=== PATIENT | female | born 1945 | race Caucasian/White ===

== ENCOUNTER 2017-02-27 11:00 | Inpatient (IN) | payer MEDICARE, OTHER ==
[~2017-02-27] VITALS: Ht 165.1 cm; Wt 114.0 kg
--- NOTE | ~2017-02-27 | DS ---
PATIENT'S NAME: ANTHONY FERRARI [facility] AGE: 71 Y [address] ROOM: [place] [address] LOCATION: [facility] ADMIT DATE: 03/12/2017 Discharge Summary DISCHARGE DATE: 03/15/2017 FAMILY PHYSICIAN: Chante Pompa MD ATTENDING PHYSICIAN: John Galdamez PRIMARY DIAGNOSIS: Degenerative joint disease of the right knee. SECONDARY DIAGNOSES: 1. Osteopenia. 2. Low blood pressure. 3. History of L4 compression fracture. 4. Hyperthyroidism. 5. History of depression. 6. Obesity, BMI of 37. PROCEDURE PERFORMED: Right total knee arthroplasty with computer navigation. HISTORY: The patient is a 71-year-old female, who presents with advanced right degenerative joint disease and associated severely compromised activities of daily living. The patient has decided to proceed with total knee arthroplasty after having been thoroughly counseled regarding the risks, benefits, limitations and alternatives. Please refer to the outpatient clinic notes and admission history and physical for this patient. HOSPITAL COURSE: The patient underwent a right total knee arthroplasty on 03/12/2017 without complications. General endotracheal anesthesia plus adductor canal block plus periarticular local anesthesia was utilized. The patient received 24 hours of perioperative prophylactic antibiotics and remained hemodynamically stable, neurovascularly intact throughout the entire hospital course. The postoperative prophylactic deep venous thrombosis prophylaxis consisted of Xarelto, early mobilization and pneumatic compression devices. Daily physical therapy for gait training, transfer training range of motion and quadriceps isometric exercises were received. The patient progressed well in physical therapy. On the date of discharge, 03/15/2017, the incision at the knee was healing well and showed no signs of infection. DISPOSITION: Critical access hospital. DISCHARGE ACTIVITY: The patient is to bear weight as tolerated with range of motion and quadriceps isometric exercises as instructed. The operative extremity is to be elevated at least 90% of the day. There is to be sterile 4x4 gauze dressings to the incision daily. Dr. Galdamez is to be notified immediately if there is any increased pain, fevers, chills erythema or drainage. PATIENT'S NAME: ANTHONY FERRARI [facility] AGE: 71 Y [address] ROOM: [place] [address] LOCATION: [facility] ADMIT DATE: 03/12/2017 Discharge Summary DISCHARGE DATE: 03/15/2017 FAMILY PHYSICIAN: Chante Pompa MD ATTENDING PHYSICIAN: John Galdamez DISCHARGE MEDICATIONS: 1. Xarelto 10 mg, take 1 tablet p.o. daily for DVT prevention. 2. Dilaudid 2 mg, take 1-2 tablets p.o. every 4 hours as needed for pain. 3. Valium 5 mg, take 1/2 tablet to 1 tablet every 6 hours as needed for muscle spasms. FOLLOWUP: Followup appointment is to be with Dr. Galdamez on 1 week subsequent to dismissal from the hospital for initial postoperative evaluation and x-rays at that time and for staple removal. INDU DAMON FOR JOHN GALDAMEZ MD TLB/modl /[id number] d: 03/29/17 1020 t: 04/13/17 0751, DISCHARGE SUMMARY
--- NOTE | ~2017-02-27 | OR ---
PATIENT'S NAME: ANTHONY CRUZ [facility] AGE: 71 Y [address] ROOM: [place] [address] LOCATION: [facility] ADMIT DATE: 03/12/2017 OR/Procedure Report DISCHARGE DATE: FAMILY PHYSICIAN: ROSA ELENA CANTOR MD ATTENDING PHYSICIAN: JOHN GALDAMEZ SURGEON: John Galdamez MD [place] OPERATOR: 1. Aly Bustos PA-C. 2. Kanu Michael CST/ISABEL. DATE OF PROCEDURE: 03/12/2017 PRE-OP DIAGNOSIS: Degenerative joint disease right knee. POST-OP DIAGNOSES: 1. Degenerative joint disease right knee. 2. Chronic anterior cruciate ligament insufficiency. OPERATION: Right total knee arthroplasty with computer navigation. ANESTHESIA: General endotracheal anesthesia plus adductor canal block plus periarticular local anesthesia (ropivacaine with epinephrine and Toradol). ESTIMATED BLOOD LOSS: Approximately 10 mL. DRAIN: None. SPECIMEN: None. COMPLICATIONS: None. IMPLANT SYSTEM: Curlew Triathlon: 1. Size 5 right posterior stabilized femoral component. 2. Size 4 universal modular tibial base plate. 3. 13 mm posterior stabilized size 4 x 3 tibial polyethylene insert. 4. 29 mm oval x3 patella component. INDICATIONS FOR SURGERY: Anthony Cruz is a 71-year-old female who presents with advanced right knee degenerative joint disease and associated severely compromised activities of daily living. The patient has decided to proceed with knee replacement after having been thoroughly counseled regarding the associated risks, benefits, and limitations. We have specifically reviewed the risks and implications of infection, deep venous thrombosis, pulmonary embolism, mortality, neurovascular complications, blood transfusion (and associated potential for disease transmission or transfusion reaction), stiffness, instability, mechanical deterioration of the components (due to wear and or loosening), and the potential need for revision. We have also PATIENT'S NAME: ANTHONY CRUZ [facility] AGE: 71 Y [address] ROOM: [place] [address] LOCATION: [facility] ADMIT DATE: 03/12/2017 OR/Procedure Report DISCHARGE DATE: FAMILY PHYSICIAN: ROSA ELENA CANTOR MD ATTENDING PHYSICIAN: JOHN GALDAMEZ emphasized the importance of active involvement and compliance with post- operative physical therapy as a means of optimizing range of motion and functional recovery. Informed consent has been granted. DESCRIPTION OF PROCEDURE: The patient was positioned supine after administration of anesthesia and prophylactic antibiotics. A well-padded pneumatic tourniquet was placed around the right proximal thigh, and the right lower extremity was prepped and draped with vigilant sterile technique. The patient's name as well as the intended operative side and procedure were confirmed with a verbal time-out involving myself, the circulating nurse, the scrub nurse, and the anesthesiologist. Examination under anesthesia demonstrated a large soft tissue envelope surrounding the knee, thigh, and calf. There was a large effusion. There were no active skin lesions or masses. There was no erythema. There was no abnormal warmth. Range of motion under anesthesia was from a 10 degree flexion contracture to 90 degrees of flexion. There was no clinically evident ligamentous insufficiency. The right lower extremity was elevated and exsanguinated with an Esmarch wrap, and the pneumatic tourniquet was inflated to 300mmHg. The knee was approached through a longitudinal midline incision. A medial parapatellar arthrotomy was performed and the patella was everted. Examination of the joint space demonstrated a large amount of benign-appearing translucent synovial fluid. There was extensive moderately proliferative synovitis. An extensive synovectomy was performed. A 1 cm loose body was noted at the posterior aspect of the medial compartment. Three separate 5 mm loose bodies were noted in the lateral gutter. There was a large fabella. There was full-thickness loss of articular cartilage throughout the medial femoral condyle and the medial tibial plateau. There was erosion of approximately 8 mm of subchondral bone from the medial tibial plateau. There was full-thickness loss of articular cartilage throughout 90% of the lateral femoral condyle and 90% of the lateral tibial plateau. There were large osteophytes at the medial and lateral femoral condyles as well as the medial, lateral, and superior margins of the femoral trochlea. There was a moderate-sized osteophyte at the superior aspect of the patella. There were mild grade 3 degenerative changes at the patella and femoral trochlea. There was extensive chondrocalcinosis and extensive degenerative tearing of the medial and lateral menisci. Remnants of the menisci and cruciate ligaments were excised. The [employer] navigation femoral tracker was pinned in place at the distal aspect of the femoral trochlea. Absence of motion between the femur and the tracking device was confirmed manually and visually. Femoral osseous landmarks were obtained in order to calibrate the computer navigation system. Landmarks PATIENT'S NAME: ANTHONY CRUZ [facility] AGE: 71 Y [address] ROOM: [id number] [place], [place] [id number] LOCATION: [facility] ADMIT DATE: 03/12/2017 OR/Procedure Report DISCHARGE DATE: FAMILY PHYSICIAN: ROSA ELENA CANTOR MD ATTENDING PHYSICIAN: JOHN GALDAMEZ included the center of rotation of the ipsilateral hip, the center-point of the distal femur, the femoral AP axis, 57 points on the medial femoral condyle articular surface, and 57 points on the lateral femoral condyle articular surface. The [employer] computer navigation system was subsequently utilized to position the distal femoral resection block such that the distal femoral resection was performed perfectly perpendicular to the femoral mechanical axis. The distal femoral resection was performed with a WegoWise oscillating saw. The [employer] computer navigation tibial tracker was pinned in place at the anterior aspect of the tibial plateau. Absence of motion between the tibia and the tracking device was confirmed manually and visually. Tibial osseous landmarks were obtained in order to calibrate the computer navigation system. Landmarks included the center-point of the tibial plateau, the AP tibial axis, 57 points on the medial tibial plateau articular surface, 57 points on the lateral tibial plateau articular surface, the medial malleolus, and the lateral malleolus. The [employer] computer navigation system was subsequently utilized to position the proximal tibial resection block such that the proximal tibial resection was performed perfectly perpendicular to the tibial mechanical axis. The proximal tibial resection was performed with a [employer]ise oscillating saw. Perpendicularity of the tibial resection with respect to the tibial shaft axis was reconfirmed by inserting a spacer- block attached to an extramedullary guide ciro. External rotation of the anterior and posterior femoral resections was set parallel to the epicondylar axis and carefully adjusted in order to create a rectangular flexion gap. The box resection was performed with a reciprocating saw. Anterior and posterior chamfer resections were performed with the oscillating saw. Posterior condyle osteophytes were excised with an osteotome. All other osteophytes were excised with a rongeur. Resection of all remnants of the menisci was reconfirmed. Flexion and extension gaps were confirmed to be symmetric and well balanced with a spacer-block technique. The patella resection was performed with an oscillating saw such that the composite thickness of the reconstructed patella was equivalent to the thickness of the tribal patella. Patella tracking was optimal, and there was no need for a lateral retinacular release. All trial components were removed and all prepared osseous surfaces were thoroughly irrigated with pulsatile saline lavage and dried prior to cementing all three components in a single stage using Curlew Simplex cement containing pre-mixed tobramycin. All extruded excess cement was removed. The entire joint space was thoroughly inspected and thoroughly irrigated with bacteriostatic pulsatile saline lavage to assure that there was no residual debris of any sort. PATIENT'S NAME: ANTHONY CRUZ [facility] AGE: 71 Y [address] ROOM: [id number] [place] [id number] LOCATION: [facility] ADMIT DATE: 03/12/2017 OR/Procedure Report DISCHARGE DATE: FAMILY PHYSICIAN: ROSA ELENA CANTOR MD ATTENDING PHYSICIAN: JOHN GALDAMEZ Final range of motion was from full extension (with no passive hypertension), 130 degrees of flexion. Patella tracking was reconfirmed to be optimal. There was very good anteroposterior stability at 90 degrees of flexion. There was less than 1 mm of medial lift-off to valgus stress in full extension. There was less than 1 mm of lateral lift-off to varus stress in full extension. The arthrotomy was closed with multiple simple and [id number] interrupted #1 Vicryl. Subcutaneous tissues were thoroughly re-irrigated with bacteriostatic pulsatile saline lavage. Subcutaneous tissues were re- approximated with simple buried interrupted #0 Vicryl sutures. The skin was closed with simple buried interrupted 2-0 Vicryl sutures followed by surgical shayy. The dressing consisted of Xeroform gauze, 4x4 gauze, ABD pads and two 6-inch Bandar Wraps. There were no intra-operative complications. It should be noted that the physician's dental office assistant played an active, integral role throughout this entire operation. By providing expert retraction, they greatly facilitated and expedited safe and effective exposure of the distal femur, proximal tibia and patella for preparation and implantation of the components. They were also actively involved in the patient's positioning, prepping and draping, as well as wound closure. MD Ana M TOTH /[id number] d: 03/13/17 0802 t: 03/21/17 1744, OPERATIVE SUMMARY
--- NOTE | ~2017-02-27 | CON ---
PATIENT'S NAME: FERRARI, [facility] AGE: 71 Y [address] ROOM: [place] [address] LOCATION: [facility] ADMIT DATE: 03/12/2017 Consultation DISCHARGE DATE: FAMILY PHYSICIAN: ROSA ELENA CANTOR MD ATTENDING PHYSICIAN: JOHN GALDAMEZ DATE OF CONSULTATION: 03/12/2017 REFERRING PHYSICIAN: John Galdamez MD REASON FOR CONSULTATION: Postop management. HISTORY OF PRESENT ILLNESS: The patient is a 71-year-old female who volunteers no past medical history, postop day 0 for a right knee arthroplasty. At this point, the patient is resting in bed comfortable and she has no complaints. REVIEW OF SYSTEMS: All systems have been reviewed and negative except for pertinent positives mentioned above. PAST MEDICAL HISTORY: The patient denies. PAST SURGICAL HISTORY: The patient denies. SOCIAL HISTORY: The patient reports no ongoing toxic habits. FAMILY HISTORY: Reviewed and is noncontributory due to known etiology for her presentation to the hospital. MEDICATIONS: Home medications are, 1. Alendronate. 2. Calcium citrate. 3. Cholecalciferol. 4. Naproxen. 5. Norethindrone. 6. Estradiol. 7. Omeprazole. PHYSICAL EXAMINATION: PATIENT'S NAME: FERRARI, [facility] AGE: 71 Y [address] ROOM: [place] [address] LOCATION: [facility] ADMIT DATE: 03/12/2017 Consultation DISCHARGE DATE: FAMILY PHYSICIAN: ROSA ELENA CANTOR MD ATTENDING PHYSICIAN: JOHN GALDAMEZ VITAL SIGNS: Temperature 97.7, pulse is 98, respirations 16, blood pressure 155/63, saturating 97% on 2 L nasal cannula. GENERAL: Appears morbidly obese, elderly female, in no acute distress. NEUROLOGICAL: Nonfocal. EYE: Shows pupils are equal and reactive to light. LYMPHATIC: Shows no cervical lymphadenopathy. ENDOCRINE: Shows no thyromegaly. LUNGS: Clear to auscultation. HEART: Rate is regular. No appreciable murmurs, gallops, or rubs. ABDOMEN: Soft, nontender, nondistended. : No costovertebral angle tenderness. SKIN: Warm and dry. STUDIES: No studies are available as of now. IMPRESSION AND RECOMMENDATIONS: This is a 71-year-old female, postop day 0 for knee arthroplasty. At this point, pain control has been ordered by Primary Service. Deep vein thrombosis prophylaxis has been ordered by Primary Service. We will follow the patient with you and address any medical issues that may arise. Additional management will depend on clinical course. Time dedicated to this patient's encounter is 25 minutes. MD JASPREET BURNETT/lauren /[id number] d: 03/13/17 0246 t: 04/23/17 1437, CONSULTATION REPORT
[2017-02-27] MEDS ORDERED: PRILOSEC20 MG PO (13:36)
[2017-02-27] MEDS ORDERED: FOSAMAX70 MG PO (13:37)
[2017-02-27] MEDS ORDERED: [UNRECOGNIZED DRUG - OTHER] PO (13:37)
[2017-02-27] MEDS ORDERED: NAPROSYN500 MG PO (13:37)
[2017-02-27] MEDS ORDERED: VITAMIN D35000 UNI1 PO (13:38)
[2017-02-27] MEDS ORDERED: CITRACAL+D(315M1 TAB PO (13:38)
== END 2017-03-15 10:45 | DRG 470 ==
LOC: G3N 03-12 11:36
PROVIDERS: ADMIT Orthopaedic Surgery
PROC: 0SRC0J9 Replacement of Right Knee Joint with Synthetic Substitute, Cemented, Open Approach (ICD-10-PCS; principal; 2017-03-13)
DX: M17.11 Unilateral primary osteoarthritis, right knee (principal); Z68.41 Body mass index [BMI] 40.0-44.9, adult; F03.90 Unspecified dementia, unspecified severity, without behavioral disturbance, psychotic disturbance, mood disturbance, and anxiety; K21.9 Gastro-esophageal reflux disease without esophagitis; Z88.0 Allergy status to penicillin; Z88.2 Allergy status to sulfonamides; E66.01 Morbid (severe) obesity due to excess calories; E55.9 Vitamin D deficiency, unspecified
CPT/HCPCS: C1713; C1776; J1100; J1885; J2001; J2250; J2795; J3010; J7120

== ENCOUNTER → 2017-03-01 | Outpatient (CLI) | payer MEDICARE, OTHER ==
[~2017-03-01] MED LIST: CITRACAL+D(315M1 TAB PO; FOSAMAX70 MG PO; NAPROSYN500 MG PO; PRILOSEC20 MG PO; VITAMIN D35000 UNI1 PO; [UNRECOGNIZED DRUG - OTHER] PO
== END | disposition disaster alternative care site (69) ==
LOC: GNJRC 10:12
DX: Z01.812 Encounter for preprocedural laboratory examination (principal); M17.11 Unilateral primary osteoarthritis, right knee